=== PATIENT | male | born 1955 | race Caucasian/White ===

== ENCOUNTER 2017-08-08 05:46 | Inpatient (IN) | payer OTHER ==
--- NOTE | 2017-07-24 11:50 | GHP ---
[f rep st] PREOP HISTORY AND PHYSICAL DATE OF ADMISSION: 08/08/2017 PROBLEM: Right hip arthritis. HISTORY OF PRESENT ILLNESS: The patient is a 61-year-old man admitted for a right total hip arthropl asty. He has had progressive pain in his right hip for about a year and a half. He is now having da kevyn pain. Walking aggravates his pain. His activities are limited. He is using ibuprofen. He has trouble putting on his shoes and socks on the right side. He has failed nonsurgical treatment. His activities are now significantly limited. He will undergo a right total hip arthroplasty. PAST MEDICAL HISTORY: He is treated for elevated cholesterol. No history of heart disease, stents, DVT, hepatitis, or bleeding problems. He has known sleep apnea and uses a mouth appliance. CURRENT MEDICATIONS: Atorvastatin 10 mg per day. ALLERGIES: Drug allergies: None. Metal allergy: None. Latex allergy: None. SOCIAL HISTORY: The patient is . He does not smoke cigarettes. Occasionally drinks alcohol. He works in sales. FAMILY HISTORY: Positive for cancer, diabetes, hypertension, and heart disease. PHYSICAL EXAMINATION: VITAL SIGNS: Height 5 feet 3 inches. Weight 150 pounds. BMI 26.6. EYES: T he conjunctivae and sclerae are clear. Pupils are round and reactive. MOUTH: Good oral hygiene. N o loose teeth. CHEST: Clear. HEART: Regular rhythm, no murmurs. EXTREMITIES: Pertinent findings are limited to his right hip. He has full hip extension and 100 degrees of flexion. As he flexes t he hip, he develops a 20-degree external rotation contracture and has no further internal or external rotation. Abduction 20 degrees. IMPRESSION ON ADMISSION: 1. Right hip degenerative arthritis. He is prepared for a right total hip arthroplasty. 2. Treatment for elevated cholesterol. IMAGING: His films show advanced degenerative arthritis of the right hip. He is [id number]. Oste ophytes are present. His leg lengths are equal. PLAN: He will undergo a right total hip arthroplasty. The surgery has been described to him, includ ing the risks, complications, expectations, and recovery time. I have discussed with him specificall y the risk of dislocation, leg length inequality, infection, and sciatic nerve injury. He understand s that he is relatively young for a total hip replacement and might need revision surgery some time i n his lifetime. All his questions have been answered, and he consents to surgery. He is going to try to be an outpatient and go home on the day of surgery. /[id number]/MODL
[2017-08-08] MEDS ORDERED: TRANEXAMIC ACID 1,400 MG in NS 100 ML IV ONE (06:00)
[2017-08-08] MEDS ORDERED: ROPIVACAINE 0.2% 80 MG, EPINEPHrine 0.2 MG, KETOROLAC TROMETHAMINE 30 MG in BAG 0 ML IU ONE (06:00)
[2017-08-08] MEDS ORDERED: POVIDONE-IODINE 20 ML in SODIUM CL IRRIG SOLUTION 500 ML IRR ONE (06:00)
[2017-08-08] MEDS ORDERED: FAMOTIDINE 20 MG TAB PO ONE (06:18)
[2017-08-08] MEDS ORDERED: DEXAMETHASONE 4 MG/ML VIAL IVP ONE (06:18)
[2017-08-08] MEDS ORDERED: ACETAMINOPHEN 325 MG TAB PO ONE (06:18)
[2017-08-08] MEDS ORDERED: ceFAZolin 2 GM/SWFI 2 GM/20 ML SYR IVP ONE (06:18)
[2017-08-08] MEDS ORDERED: LR 1,000 ML IV ONE (06:22)
[2017-08-08] MEDS ORDERED: ceFAZolin 1 GM/5 ML SYR ONE (06:37)
--- NOTE | 2017-08-08 06:57 | PDHPUP ---
History & Physical Update H&P update statement: This history and physical update is based on an assessment of the patient which was completed after admission or registration (within 24 hours), but prior to the surgery/procedure. H&P update: H&P reviewed & patient examined, no change in patient's condition since H&P completed
[2017-08-08] MEDS ORDERED: MIDAZOLAM 2 MG/2 ML VIAL ONE (07:01)
--- NOTE | 2017-08-08 07:04 | PDANEPAE ---
ANE History of Present Illness 61 yo M w OA here for MESERET ANE Past Medical History - Cardiovascular History Hx Hypertension: No Hx Arrhythmias: No Hx Chest Pain: No Hx Coronary Artery / Peripheral Vascular Disease: No Hx CHF / Valvular Disease: No Hx Palpitations: No Cardiovascular History Comment: HLD - Pulmonary History Hx COPD: No Hx Asthma/Reactive Airway Disease: No Hx Recent Upper Respiratory Infection: No Hx Oxygen in Use at Home: No Hx Sleep Apnea: Yes Sleep Apnea Screening Result - Last Documented: Positive Pulmonary History Comment: POS SLEEP APNEA - ORAL APPLIANCE - NO CPAP - Neurologic History Hx Cerebrovascular Accident: No Hx Seizures: No Hx Dementia: No - Endocrine History Hx Diabetes: No - Renal History Hx Renal Disorders: No - Liver History Hx Hepatic Disorders: No - Neurological & Psychiatric Hx Hx Neurological and Psychiatric Disorders: No - Cancer History Hx Cancer: No - Congenital Disorder History Hx Congenital Disorders: No - GI History Hx Gastrointestinal Disorders: No - Other Health History Other Health History: NEG - Chronic Pain History Chronic Pain: Yes (R HIP PAIN) - Surgical History Prior Surgeries: NONE ANE Review of Systems Review of Systems: - Exercise capacity METS (RN): 4 METS ANE Patient History - Allergies Allergies/Adverse Reactions: No Known Allergies Allergy (Verified 08/08/17 06:24) - Home Medications Home Medications: Acetaminophen [Tylenol 325mg (*)] 325 mg PO DAILY PRN 06/29/17 [Last Taken 08/04] Atorvastatin Calcium [Lipitor 10 mg (*)] 10 mg PO DAILY 06/29/17 [Last Taken 03/18] Herbals/Supplements -Info Only 1 ea PO DAILY 06/29/17 [Last Taken 08/04/17] traMADol [Ultram 50 mg (*)] 50 mg PO DAILY PRN 06/29/17 [Last Taken 08/04/17] - NPO status NPO Status: no food or drink >8 hours NPO Since - Liquids (Date): 08/07/17 NPO Since - Liquids (Time): 19:00 NPO Since - Solids (Date): 08/07/17 NPO Since - Solids (Time): 19:00 - Anes Hx Anes Hx: no prior problems - Smoking Hx Smoking Status: Former smoker - Alcohol Use Alcohol Use: Rarely - Family Anes Hx Family Anes Hx: none Family Hx Anesthesia Complications: NEG ANE Labs/Vital Signs - Vital Signs Blood Pressure: 108/75 Heart Rate: 75 Respiratory Rate: 16 O2 Sat (%): 93 Height: 161.93 cm Weight: 68.946 kg ANE Physical Exam - Airway Neck exam: FROM Mallampati Score: Class 3 Mouth exam: normal dental/mouth exam Mouth image: 1 - chipped - Pulmonary Pulmonary: no respiratory distress, clear to auscultation - Cardiovascular Cardiovascular: regular rate and rhythym, no murmur, rub, or gallop - ASA Status ASA Status: II ANE Anesthesia Plan Anesthesia Plan: GA with mask, spinal Total IV Anesthesia: Yes
[2017-08-08] MEDS ORDERED: MIDAZOLAM 2 MG/2 ML VIAL IVP ONE (07:05)
[2017-08-08] MEDS ORDERED: PROPOFOL/EMULSION 500 MG/50 ML BOTTLE IV ONE ×2 (07:10→08:08)
[2017-08-08] MEDS ORDERED: ACETAMINOPHEN 500 MG TAB PO PRN (08:28)
[2017-08-08] MEDS ORDERED: ONDANSETRON 4 MG/2 ML VIAL IVP PRN ×2 (08:28→08:53)
[2017-08-08] MEDS ORDERED: OXYCODONE/APAP 5/325 TAB PO PRN (08:28)
[2017-08-08] MEDS ORDERED: HYDROCODONE/APAP 5/325 TAB PO PRN (08:28)
[2017-08-08] MEDS ORDERED: fentaNYL 100 MCG/2 ML INJ IVP PRN (08:28)
[2017-08-08] MEDS ORDERED: NALOXONE HCL 0.4 MG/ML INJ IVP PRN (08:28)
--- NOTE | 2017-08-08 08:46 | POSTOPPROG ---
Post Op Note Date of Operation: 08/08/17 Surgeon: Yony Jarvis Industrial Relations Officer: Pradeep Meyers/Nando Estrada Anesthesiologist: Dr. Corey Lorenz Anesthesia: IV Sedation, Spinal Post-op Diagnosis: Right hip severe degenerative arthritis Procedure: Right total hip arthroplasty Inf/Abcess present in the surg proc area at time of surgery?: No EBL: 100-500
[2017-08-08] MEDS ORDERED: LACTULOSE 20 GM/30 ML UDCUP PO PRN (08:53)
[2017-08-08] MEDS ORDERED: BISACODYL 10 MG SUPP PR PRN (08:53)
[2017-08-08] MEDS ORDERED: POLYETHYLENE GLYCOL 3350 17 GM PKT PO PRN (08:53)
[2017-08-08] MEDS ORDERED: CYCLOBENZAPRINE 10 MG TAB PO PRN (08:53)
[2017-08-08] MEDS ORDERED: DIPHENOXYLATE/ATROPINE LOMOTIL 1 TAB PO PRN (08:53)
[2017-08-08] MEDS ORDERED: MAGNESIUM HYDROXIDE 30 ML UDCUP PO PRN (08:53)
[2017-08-08] MEDS ORDERED: TEMAZEPAM 15 MG CAP PO PRN (08:53)
[2017-08-08] MEDS ORDERED: oxyCODONE IR 5 MG TAB PO PRN (08:53)
[2017-08-08] MEDS ORDERED: PROMETHAZINE HCL 25 MG SUPPR PR PRN (08:53)
[2017-08-08] MEDS ORDERED: NS 500 ML IV PRN (08:53)
[2017-08-08] MEDS ORDERED: METOCLOPRAMIDE 10 MG/2 ML VIAL IVP PRN (08:53)
[2017-08-08] MEDS ORDERED: traMADol 50 MG TAB PO PRN (08:53)
[2017-08-08] MEDS ORDERED: diphenhydrAMINE 25 MG CAP PO PRN (08:53)
[2017-08-08] MEDS ORDERED: ONDANSETRON DISINTEGRATING 4 MG TAB PO PRN (08:53)
[2017-08-08] MEDS ORDERED: PROMETHAZINE HCL 25 MG/ML INJ IVP PRN (08:53)
[2017-08-08] MEDS ORDERED: KETOROLAC 30 MG/1 ML SDV IVP PRN (08:53)
[2017-08-08] MEDS ORDERED: LR 1,000 ML IV SCH (09:00)
--- NOTE | 2017-08-08 09:23 | GOP ---
[f rep st] OPERATIVE REPORT DATE OF OPERATION: 08/08/2017 SURGEON: Yony Jarvis MD [employer] PROFESSOR: Pradeep Meyers [facility] Slava Estrada PA-C ANESTHESIA: A combination of Marcaine spinal and IV sedation by Corey Lorenz MD. PREOPERATIVE DIAGNOSIS: Right hip severe degenerative arthritis. POSTOPERATIVE DIAGNOSIS: Right hip severe degenerative arthritis. PROCEDURE PERFORMED: Right total hip arthroplasty, Oxinium femoral head on highly cross-linked polye thylene cup liner. FINDINGS: DESCRIPTION OF PROCEDURE: The patient was given 2 g of IV Ancef preoperatively within 60 minutes of surgery. He also received IV tranexamic acid at a dose of 20 mg/kg. He was placed on the operating room table and given a spinal anesthesia with Marcaine by Dr. Corey Lorenz. He was then placed supine and given IV sedation. A Manuel catheter was not used. He wore a GLORIA stocking and SCD on the nonoper ative leg. He was rolled to the left lateral decubitus position. The position was secured with the pegboard table attachment. An axillary roll was used, and all pressure points were carefully padded. I was careful to lock his pelvis in a vertical position. His perineum was isolated with plastic ad hesive drapes. The right hip and right lower extremity were prepped with ChloraPrep. They were drap ed free using sterile sheets, stockinette, and Ioban plastic drapes. The [employer] time-out was performed to verify the correct surgical side and site and the correct patient identity. The [place] time-out was also performed. I made a 4-5 inch straight oblique posterolateral hip skin incision. The subcutaneous tissues were s harply divided, and hemostasis was obtained using electrocautery. His fascia sanjay was identified and split along the axis of its fibers. I then curved posteriorly and proximally, and split the fascia of the gluteus farida and bluntly split the muscle fibers in line with their orientation. The Aleishan pat self-retaining retractor was inserted. His sciatic nerve was located, partially exposed, and pro tected throughout the procedure. The external rotators and the posterior hip capsule were divided as separate layers at the base of the femoral neck, tagged, and reflected posteriorly. A smooth 8-inch Steinmann pin was inserted vertically into the ilium, superior to the acetabulum. An eighth-inch dr ill bit was inserted vertically into the greater trochanter and parallel to the first pin. The dista nce between the 2 was measured for leg length reference. His femoral head was dislocated posteriorly . Severe degenerative changes were present on his femoral head. His femoral neck was osteotomized a t the appropriate level and inclination. I was careful to preserve all the posterior capsule and most of the anterior capsule. The remnant of his damaged labrum was excised. I prepared the femur first. This allowed me to computed tomography scanner operator the amount of natural femoral neck anteversion. This, in turn, allowed me to later determine the correct amount of cup anteversion. He had only ab out 8 or 10 degrees of natural femoral neck anteversion. The canal was opened laterally with a box c hisel. I reamed and broached sequentially up to size 13. I used a size 13 broach with the standard offset as a trial stem. I was careful to lateralize adequately. Appropriate retractors were inserted to expose the acetabulum. The acetabulum was reamed sequentiall y up to 51 mm. I selected a 52 mm Randall and Nephew R3 solid-backed hemispherical shell. This was ta pped securely into place in the proper degree of inclination and anteversion. I used the transverse acetabular ligament and other acetabular bony landmarks to help me properly orient the cup. I used a screw-in metal dome hole plug. I did not think supplemental screw fixation was necessary. I performed a series of trial reductions to determine length and stability. I concluded that the siz e 13 stem with a -3 mm neck length, a 32 mm head, and a lipped liner gave me the proper combination o f appropriate length and good anterior and posterior stability. The 20-degree lipped Randall and Nephew R3 highly cross-linked polyethylene liner was inserted and ena ed securely into place. I dialed the overhang so that it was directly posterior. I chose a Randall an d Nephew Synergy stem in a size 13 with standard offset. This was inserted press-fit and was very ti ght. I did one final trial reduction and confirmed that the -3 mm neck length with a 32 mm head was the proper combination. The Randall and Nephew Oxinium head with an outside diameter of 32 mm and a ne ck length of -3 mm was tapped securely onto the clean trunnion. The acetabulum was irrigated and anthony aned, and the hip was reduced one final time. He had excellent anterior and posterior stability and appropriate length. 40 mL of the joint anesthetic cocktail was injected into the capsule, the deep musculature, and the s ubcutaneous tissues along the skin edges. The joint was thoroughly irrigated one final time with a d ilute Betadine solution. His sciatic nerve was reinspected and looked unharmed. The external rotators and the posterior hip capsule were repaired in separate layers with #2 FiberWir e sutures through drill holes in the greater trochanter. This provided a very strong posterior capsu lar and external rotator repair. The fascia sanjay was closed first with 2 interrupted [id number] #2 FiberWire sutures followed by a running #2 barbed Ethicon Stratafix PDO suture. The subcutaneous tissues were closed with a running 0 barbed Ethicon Stratafix Monoderm suture. The skin was closed with a running 3 0 barbed Ethicon Stratafix Monoderm subcuticular suture. The skin edges were reappr oximated and sealed with Dermabond glue. The wound was covered with a piece of waterproof Mepilex dr dejesus. A long-leg GLORIA stocking and SCD were applied to his right lower extremity. He wore a stocking and SC D on the opposite leg during the procedure. An abduction pillow was placed between his knees. He wa s awakened from anesthesia and rolled to the supine position on his [facility]. He was taken to PACU in satisfactory condition. There were no recognized intraoperative complications. The estimated blood loss was 300 mL. I used a Randall and Nephew R3 hemispherical solid-backed acetabular shell with an outside diameter of 32 mm. The liner was a Randall and Nephew R3 20-degree lipped highly cross-linked liner with an inside diameter of 32 mm. The femoral component was a press-fit Randall and Nephew standard offset Synergy s tem in size 13. The femoral head was a Randall and Nephew Oxinium head with a -3 mm neck length and a 32 mm outside diameter. Pradeep Meyers CFA, and Nando Estrada PA-C, acted as surgical assistants. Their assistance was a m edical necessity for safe completion of the procedure. /[id number]/MODL
[2017-08-08] MEDS: ACETAMINOPHEN 325 MG TAB PO SCH ×3 (14:01→22:31)
[2017-08-08] MEDS: ATORVASTATIN CALCIUM 10 MG TAB PO SCH (14:01)
[2017-08-08] MEDS: FERROUS SULFATE 140 MG TAB.ER PO SCH (14:02)
[2017-08-08] MEDS: SENNOSIDES/DOCUSATE SODIUM TAB PO SCH ×2 (14:02→20:39)
[2017-08-08] MEDS: ceFAZolin 2 GM/DEXTROSE 100 ML IV SCH ×2 (14:29→20:41)
--- NOTE | 2017-08-08 17:17 | POSTANESTH ---
Post Anesthetic Evaluation Cardiovascular Status: Normal, Stable, Similar to Pre-Op Cond Respiratory Status: Normal, Stable, Similar to Pre-op Cond. Level of Consciousness/Mental Status: Can Participate in Eval, Alert and Oriented Pain Control: Adequate, Prn Tx Ordered Nausea/Vomiting Control: Adequate, Prn Tx Ordered Complications Possibly Related to Anesthesia: None Noted
[2017-08-08] MEDS: FAMOTIDINE 20 MG TAB PO SCH (20:39)
[2017-08-08] MEDS: ASPIRIN 325 MG TAB PO SCH (22:31)
[2017-08-09 04:37] VITALS: RESP 14
[2017-08-09] MEDS: ACETAMINOPHEN 325 MG TAB PO SCH ×2 (05:50→11:58)
[2017-08-09] MEDS: FAMOTIDINE 20 MG TAB PO SCH (08:54)
[2017-08-09] MEDS: ATORVASTATIN CALCIUM 10 MG TAB PO SCH (08:54)
[2017-08-09] MEDS: SENNOSIDES/DOCUSATE SODIUM TAB PO SCH (08:55)
[2017-08-09] MEDS: FERROUS SULFATE 140 MG TAB.ER PO SCH (08:55)
[2017-08-09] MEDS: ASPIRIN 325 MG TAB PO SCH (08:55)
--- NOTE | 2017-08-09 09:49 | SOAPPROG ---
SOAP Progress Note Assessment/Plan: Assessment: Afebrile. Awake and alert. He experienced mild nausea after up and walking in the [place] today. His dressing is dry. Sciatic nerve intact. H&H are satisfactory. Postop films look excellent. Plan: Continue physical therapy today. Discharge later today. 08/09/17 09:48 Objective: Vital Signs Temp Pulse Resp BP Pulse Ox 36.7 C 65 14 110/58 L 95 08/09/17 07:24 08/09/17 07:24 08/09/17 07:24 08/09/17 07:24 08/09/17 07:24 Laboratory Results 08/09/17 04:19 08/08/17 08/09/17 08/10/17 05:59 05:59 05:59 Intake Total 1890 Output Total 375 500 Balance 1515 -500 ICD10 Worksheet Patient Problems: Problems Problem Status Onset Osteoarthritis of right hip Acute
--- NOTE | 2017-08-09 10:13 | GDS ---
[f rep st] DISCHARGE SUMMARY ADMISSION DIAGNOSIS: Right hip degenerative arthritis. DISCHARGE DIAGNOSIS: Right hip degenerative arthritis. OPERATION PERFORMED: 08/08/2017, right total hip arthroplasty, Oxinium femoral head on highly cross- linked polyethylene cup liner. POSTOPERATIVE COMPLICATIONS: None. CONDITION ON DISCHARGE: Improved. DESCRIPTION OF HOSPITAL COURSE: The patient was admitted to the hospital on the morning of surgery. His admission CBC was normal. The same day, under a combination of Marcaine, spinal, and IV sedatio n, he underwent a right total hip arthroplasty. Postoperatively, he was treated with multimodal DVT prophylaxis, including aspirin. He was seen by Physical Therapy and made good progress with ambulati on and stairs. On the first postoperative day, his hemoglobin and hematocrit were 13.2 and 39.0. By the time of discharge, he was afebrile and was independent walking. DISPOSITION: Patient discharged to his home. He will go to outpatient physical therapy at our [facility] starting next week. He may progress to full weightbearing on the right as tolerated. Use aspirin 325 mg p.o. daily for 21 days. I will see him back in the office on August 28, 2017. If any probl ems, he is to call me at the office. /[id number]/MODL
--- NOTE | 2017-08-09 10:13 | GDS ---
[f rep st] DISCHARGE SUMMARY ADMISSION DIAGNOSIS: Right hip degenerative arthritis. DISCHARGE DIAGNOSIS: Right hip degenerative arthritis. OPERATION PERFORMED: 08/08/2017, right total hip arthroplasty, Oxinium femoral head on highly cross- linked polyethylene cup liner. POSTOPERATIVE COMPLICATIONS: None. CONDITION ON DISCHARGE: Improved. DESCRIPTION OF HOSPITAL COURSE: The patient was admitted to the hospital on the morning of surgery. His admission CBC was normal. The same day, under a combination of Marcaine, spinal, and IV sedatio n, he underwent a right total hip arthroplasty. Postoperatively, he was treated with multimodal DVT prophylaxis, including aspirin. He was seen by Physical Therapy and made good progress with ambulati on and stairs. On the first postoperative day, his hemoglobin and hematocrit were 13.2 and 39.0. By the time of discharge, he was afebrile and was independent walking. DISPOSITION: Patient discharged to his home. He will go to outpatient physical therapy at our [facility] starting next week. He may progress to full weightbearing on the right as tolerated. Use aspirin 325 mg p.o. daily for 21 days. I will see him back in the office on August 28, 2017. If any probl ems, he is to call me at the office. /[id number]/MODL
[2017-08-09 11:17] VITALS: BP 107/63; PULSE 67; TEMP 98.3; O2SAT 93
--- NOTE | 2017-08-09 14:15 | ASDISCHSUM ---
Discharge Information Plan Status:Home with No Needs Medically Cleared to Leave: Discharge Date:08/09/2017 12:23 PM D/C Disposition:Home, Routine, Self-Care ADT D/C Disposition:Home, Routine, Self-Care Projected Discharge Date:08/09/2017 12:23 PM Transportation at D/C: Discharge Delay Reason: Follow-Up Date:08/09/2017 12:23 PM Discharge Slot: Final Diagnosis: Placement Information Patient Contact Information Contact Name:KWADWO Relationship: Address:[address] [place] [address] City:[place] Alternate Phone: [facility]/Zip Code:[place] [address] Email: Financial Information Financial Class:[facility] Primary Plan Desc:[employer] OPEN ACC [facility] Primary Plan Number:[id number] Secondary Plan Desc: Secondary Plan Number: Assessment Information [facility] CM Progress Note CM Note CM Note Notes: Pt medically stable for d/c, PT rec home. No CM d/c needs identified. Date Signed: 08/09/2017 02:14 PM Electronically Signed By:EV Cedeno Intervention Information
--- NOTE | 2017-08-09 14:15 | ASDISCHSUM ---
Discharge Information Plan Status:Home with No Needs Medically Cleared to Leave: Discharge Date:08/09/2017 12:23 PM D/C Disposition:Home, Routine, Self-Care ADT D/C Disposition:Home, Routine, Self-Care Projected Discharge Date:08/09/2017 12:23 PM Transportation at D/C: Discharge Delay Reason: Follow-Up Date:08/09/2017 12:23 PM Discharge Slot: Final Diagnosis: Placement Information Patient Contact Information Contact Name:KWADWO Relationship: Address:[address] [place] [address] City:[place] Alternate Phone: [facility]/Zip Code:[place] [address] Email: Financial Information Financial Class:[facility] Primary Plan Desc:[employer] OPEN ACC [facility] Primary Plan Number:[id number] Secondary Plan Desc: Secondary Plan Number: Assessment Information [facility] CM Progress Note CM Note CM Note Notes: Pt medically stable for d/c, PT rec home. No CM d/c needs identified. Date Signed: 08/09/2017 02:14 PM Electronically Signed By:EV Cedeno Intervention Information
--- NOTE | 2017-08-09 14:15 | ASDISCHSUM ---
Discharge Information Plan Status:Home with No Needs Medically Cleared to Leave: Discharge Date:08/09/2017 12:23 PM D/C Disposition:Home, Routine, Self-Care ADT D/C Disposition:Home, Routine, Self-Care Projected Discharge Date:08/09/2017 12:23 PM Transportation at D/C: Discharge Delay Reason: Follow-Up Date:08/09/2017 12:23 PM Discharge Slot: Final Diagnosis: Placement Information Patient Contact Information Contact Name:KWADWO Relationship: Address:[address] [place] [address] City:[place] Alternate Phone: [facility]/Zip Code:[place] [address] Email: Financial Information Financial Class:[facility] Primary Plan Desc:[employer] OPEN ACC [facility] Primary Plan Number:[id number] Secondary Plan Desc: Secondary Plan Number: Assessment Information [facility] CM Progress Note CM Note CM Note Notes: Pt medically stable for d/c, PT rec home. No CM d/c needs identified. Date Signed: 08/09/2017 02:14 PM Electronically Signed By:EV Cedeno Intervention Information
== END 2017-08-09 12:23 | disposition home or self-care (01) | DRG 470 ==
LOC: F3N 05:46
PROVIDERS: ADMIT Orthopaedic Surgery; ATTEND Orthopaedic Surgery
PROC: 0SR902Z Replacement of Right Hip Joint with Metal on Polyethylene Synthetic Substitute, Open Approach (ICD-10-PCS; principal; 2017-08-08 07:15)
DX: M16.11 Unilateral primary osteoarthritis, right hip (principal); E78.00 Pure hypercholesterolemia, unspecified
CPT/HCPCS: 97110-GP; 97116-GP; 97161-GP; 97165-GO; J0171; J0690; J1100; J1885; J2250; J2704; J2795